=== PATIENT | male | born 1955 | race African-American/Black ===

== ENCOUNTER 2020-10-06 06:37 | Observation (INO) ==
[2020-10-06] MEDS ORDERED: Dexamethasone 4 MG/ML VIAL ONE (07:04)
[2020-10-06] MEDS ORDERED: Ondansetron 4 MG/2 ML VIAL ONE (07:04)
[2020-10-06] MEDS ORDERED: *HR* Propofol 200 MG/20 ML VIAL IVP ONE (07:04)
[2020-10-06] MEDS ORDERED: *HR* Rocuronium Bromide 50 MG/5 ML VIAL ONE (07:04)
[2020-10-06] MEDS ORDERED: Lidocaine -MPF 2% 2 ML VIAL ONE ×2 (07:04→07:30)
[2020-10-06] MEDS ORDERED: *HR* Succinylcholine 200 MG/10 ML VIAL IVP ONE (07:04)
[2020-10-06] MEDS ORDERED: Lidocaine -MPF 4% 5 ML AMPUL ONE (07:04)
[2020-10-06] MEDS ORDERED: *HR* FentaNYL (PF) 100 MCG/2 ML VIAL ONE (07:04)
[2020-10-06] MEDS ORDERED: *HR* Midazolam HCl 5 MG/5 ML VIAL IVP ONE (07:04)
[2020-10-06] MEDS ORDERED: CeFAZolin Syr 2,000MG/20 ML 2,000 MG/20 ML SYRINGE IVPB ONE (07:05)
[2020-10-06] MEDS ORDERED: Ringers Solution, Lactated 1,000 ML IVC SCH ×3 (07:15→17:42)
[2020-10-06] MEDS ORDERED: *HR* Phenylephrine 10 MG/ML VIAL ONE (07:18)
[2020-10-06] MEDS ORDERED: Heparin 1,000 UNITS/500 mL 500 ML ONE (07:19)
[2020-10-06] MEDS ORDERED: *HR* Remifentanil 1 MG VIAL IVP ONE ×2 (07:23→10:44)
[2020-10-06] MEDS ORDERED: Ketorolac 15 MG/ML VIAL IVP PRN (07:23)
[2020-10-06] MEDS ORDERED: *HR* HYDROmorphone PF 0.5 MG/0.5 ML SYRINGE IVP PRN (07:23)
[2020-10-06] MEDS ORDERED: *HR* OxyCODONE Immed Rel 5 MG TABLET PO PRN (07:23)
[2020-10-06] MEDS ORDERED: Ondansetron 4 MG/2 ML VIAL IVP PRN ×2 (07:23→17:42)
[2020-10-06] MEDS ORDERED: Lacri-Lube 3.5 GM TUBE ONE (07:37)
[2020-10-06] MEDS ORDERED: Gabapentin 300 MG CAPSULE PO ONE (07:46)
[2020-10-06] MEDS ORDERED: *HR* OxyCODONE ER (12 HR) 10 MG TABLET PO ONE (07:46)
[2020-10-06] MEDS ORDERED: Acetaminophen IV 1,000 MG/100 ML INFUS..BTL ONE (07:55)
[2020-10-06] MEDS ORDERED: Bacitracin 50,000 UNIT, Polymyxin B Sulfate 500,000 UNIT, Sodium Chloride IRRigation 1,... IR ONE (08:15)
[2020-10-06] MEDS ORDERED: EPHEDrine 50 MG/ML VIAL ONE (11:07)
[2020-10-06] MEDS ORDERED: Ketorolac 30 MG/ML VIAL ONE (12:29)
[2020-10-06] MEDS ORDERED: *HR* Labetalol 20 MG/4 ML SYRINGE IVP ONE (13:35)
[2020-10-06] MEDS ORDERED: Acetaminophen 325 MG TABLET PO PRN (17:42)
[2020-10-06] MEDS ORDERED: Naloxone 0.4 MG/ML INJ IVP PRN (17:42)
[2020-10-06] MEDS: Famotidine 20 MG TABLET PO SCH (20:38)
[2020-10-06] MEDS: *HR* OxyCODONE Immed Rel 5 MG TABLET PO PRN (20:38)
[2020-10-06] MEDS: traZODone 50 MG TABLET PO SCH (20:39)
[2020-10-06] MEDS: CeFAZolin 2 GM/120 ML BAG IVPB SCH (20:39)
[2020-10-07] MEDS: CeFAZolin 2 GM/120 ML BAG IVPB SCH (01:22)
[2020-10-07] MEDS: *HR* OxyCODONE Immed Rel 5 MG TABLET PO PRN (08:12)
[2020-10-07] MEDS: Famotidine 20 MG TABLET PO SCH ×2 (08:12→19:40)
[2020-10-07] MEDS: *HR* OxyCODONE/APAP 10/325 TABLET PO PRN ×2 (17:00→21:52)
[2020-10-07] MEDS: traZODone 50 MG TABLET PO SCH (19:40)
[2020-10-08] MEDS: *HR* OxyCODONE/APAP 10/325 TABLET PO PRN ×4 (02:59→15:52)
[2020-10-08] MEDS: Famotidine 20 MG TABLET PO SCH (07:13)
[2020-10-08 11:54] VITALS: BP 139/85
[2020-10-08] MEDS ORDERED: polyethylene glycoL 3350 17 GM POWD.PACK PO PRN (13:24)
== END 2020-10-08 17:00 | disposition home or self-care (01) ==
LOC: 3NENU 06:37 → SAMDAY 06:37 → 3NENU 17:11
PROVIDERS: ADMIT Orthopaedic Surgery Orthopaedic Surgery of the Spine; ATTEND Orthopaedic Surgery Orthopaedic Surgery of the Spine